=== PATIENT | male | born 2000 ===

== ENCOUNTER 2024-09-09 02:20 | Outpatient (CLI) | payer OTHER, SELFPAY ==
--- NOTE | 2024-09-09 07:30 | DI.US_ITS ---
APPROVED REPORT EXAM: Comprehensive 2D, Doppler, and color-flow Echocardiogram Patient Location: Out-Patient [employer] Finisher: Sherry Martinez RDCS (AE) Indications: Palpitations, Murmur Other Information Study Quality: Adequate Conclusion Normal left ventricular wall thickness and chamber size. Ejection fraction is 58%. Wall motion is n ormal Normal right ventricular size and function Both atria are normal in size Aortic valve is trileaflet and very mildly thickened. There is mild to moderate aortic regurgitation Wall motion Left Ventricle The left ventricle is normal size. The left ventricular systolic function is normal. The left ventric ular ejection fraction is within the normal range. There is normal left ventricular wall thickness. T here is normal LV segmental wall motion. There is no ventricular septal defect visualized. LVEF is 58 %. Right Ventricle The right ventricle is normal size. The right ventricular systolic function is normal. Atria The left atrium size is normal. The right atrium size is normal. The interatrial septum is intact wit h no evidence for an atrial septal defect. Aortic Valve The aortic valve is very mildly thickened Aortic valve is trileaflet. There is no aortic valvular isreal nosis. Mild to moderate aortic regurgitation. Mitral Valve The mitral valve is normal in structure. No evidence of mitral valve stenosis. Trace to mild mitral r egurgitation. Tricuspid Valve The tricuspid valve is normal in structure. There is no tricuspid valve stenosis. Trace tricuspid reg urgitation. Unable to assess PA pressure. Pulmonic Valve The pulmonary valve is normal in structure. There is no pulmonic valvular stenosis. There is no pulmo daniel valvular regurgitation. Great Vessels The aortic root is normal in size. Ascending aorta is not well visualized. Aortic arch is not well vi sualized. IVC is normal in size and collapses >50% with inspiration. Pericardium There is no pericardial effusion. 2D Dimensions IVSD d PLAX 0.61 cm M: 0.6-1.2 Ao Root d 2.33 cm M: 3.1 - 3.7 LVPW d PLAX 0.63 cm M: 0.6 - 1.2 LVID d PLAX 4.72 cm M: 4.2 - 5.8 LVDs 3.01 cm M: 2.5 - 4.0 LV EF Teichholz 66.0 % FS 36.30 % LV EDV (Teich) 103.6 mL LV ESV (Teich) 35.3 mL M-Mode TAPSE 2.09 cm (M/F) >1.7 Auto EF LV EDV A4C 134.5 mL LV EDV A2C 159.3 mL LV EDV BP 149.4 mL LV ESV A4C 57.9 mL LV ESV A2C 67.5 mL LV ESV BP 62.9 mL LVEF(%) A4C 56.9 % LVEF(%) A2C 57.6 % LVEF(%) BP 57.9 % LV SV A4C 76.5 ml LV SV A2C 91.8 ml LV SV BP 86.5 ml LV CO A4C 4.8 L/min LV CO A2C 6.5 L/min LV CO BP 5.6 L/min HR A4C 62.50 BPM HR A2C 70.56 BPM LV EDV Index (BP) LV Diastology MV E' medial 0.133 (>0.07 m/s) MV E Vmax 0.95 (0.4-1.3 m/s) MV E/E' MED 7.15 (<14) MV A Vmax 0.65 (0.4-1.3 m/s) MV E' lateral 0.190 (>0.1 m/s) E/A Ratio 1.5 MV E/E' LAT 5.00 (<14) MV E' Average 0.162 m/s MV E/E'(average) 5.89 Aortic Valve AoV Vmax 1.53 m/s LVOT Vmax 0.96 m/s AoV Peak Grad 42.2 mmHg LVOT Peak Grad 3.7 mmHg AoV Area (Vmax) 2.05 cm2 LVOT VTI 0.179 m AoV VTI 0.299 m LVOT Mean Grad 1.8 mmHg AoV Mean Xavier. 1.06 m/s LVOT SV 58.36 mL AoV Mean Grad 5.2 mmHg LVOT Diam s 2.00 cm AoV Area (VTI) 1.95 cm2 AV Regurg Peak Gr. 9.31 mmHg Velocity Ratio 0.63 AR Decel Griggs 0.9m/sec2 AR DT 4893 msec AR PHT 1419 msec AR Vmax 4.33 m/s Mitral Valve MV DT 99 (160-240 msec) Pulmonary Valve PV Vmax 1.37 (0.5-1.5 m/s) RVOT Vmax 0.93 m/s PV Peak Grad 7.6 mmHg RVOT Peak Gr. 3.5 mmHg PV Mean Xavier 0.93 m/s RVOT VTI 0.218 m PV Mean Grad 4.0 mmHg RVOT Mean Gr. 2.0 mmHg Tricuspid Valve TV S' 0.12 m/s
== END 2024-09-09 02:40 ==
LOC: DI 02:20
PROVIDERS: Visit Provider Internal Medicine Cardiovascular Disease
DX: R01.1 Cardiac murmur, unspecified (principal); I35.1 Nonrheumatic aortic (valve) insufficiency
CPT/HCPCS: 93306